=== PATIENT | male | born 1960 | race Caucasian/White ===

== ENCOUNTER 2019-03-21 11:20 | Inpatient (IN) | payer OTHER ==
[~2019-03-21] VITALS: Ht 172.7 cm; Wt 80.3 kg
--- NOTE | 2019-03-21 11:32 | NUR ---
AMBULATORY TO BED 12. C/O FEVER, COUGH X5 DAYS.
--- NOTE | 2019-03-21 14:26 | NUR ---
ORAL TEMP 100.9, TYLENOL 1 GM PO ADMIN PER PROTOCOL.
[2019-03-21 14:29] LABS: CALCIUM 7.3 mg/dL (8.5-10.1); CARBON DIOXIDE 25.6 mmol/L (21-32); CHLORIDE SERUM 98 mmol/L (98-107); CREATININE SERUM 1.1 mg/dL (0.7-1.3); GFR1 > 60 mL/min; GLUCOSE SERUM 109 mg/dL (74-106); POTASSIUM SERUM 3.6 mmol/L (3.5-5.1); SODIUM SERUM 132 mmol/L (136-145)
[2019-03-21 14:36] LABS: RED CELL DISTRIBUTION WIDTH 12.8 % (11.5-14.5)
[2019-03-21 14:47] LABS: BASOPHIL % 0 % (0-2); PLATELET COUNT 100 x10^3mcL (130-400)
[2019-03-21 15:28] LABS: UA SPECIFIC GRAVITY 1.015 (1.005-1.035); microscopic required? YES; urine erythrocyte 2+ (NEGATIVE)
--- NOTE | 2019-03-21 16:35 | NUR ---
SLEEPING, EASILY AROUSABLE, NO SIGNS OF DISTRESS, FAMILY AT BEDSIDE.
[2019-03-21 17:56] LABS: AMPHETAMINE QUAL UR NONE DETECTED (See below)
[2019-03-21 17:57] LABS: CHOLESTEROL/HDL RATIO 8.9; MAGNESIUM 1.7 mg/dL (1.8-2.4); PHOSPHOROUS 2.1 mg/dL (2.5-4.9)
[2019-03-21] MEDS ORDERED: MECLIZINE HYDRO25 M1 PO (18:00)
[2019-03-21] MEDS ORDERED: CEPHALEXIN500 MG PO (18:01)
--- NOTE | 2019-03-21 18:04 | NUR ---
AWAKE, ALERT, WATCHING TV, NO SIGNS OF DISTRESS, NO SOB, NO CP. FAMILY AT BEDSIDE,.
--- NOTE | 2019-03-21 18:08 | NUR ---
PT ADMITTED TO [facility], REPORT GIVEN TO JOSHUA STAUFFER.
[2019-03-21 18:39] VITALS: BP 98/52
--- NOTE | 2019-03-21 18:49 | NUR ---
RECEIVED PT FROM ER, PT ADMIT FOR UTI, PT IS A/O X4, VERBAL RESPONSIVE, ABLE TO TELL WHAT HE NEEDS. RIGHT EYE BLIND, MILD COLOR, NO REACT TO LIGHTS, LUNG SOUND CLEAR BILATERAL, NO COUGH, NO SOB, PT DENY ANY CHEST PAIN OR DISCOMFORT, BOWEL SOUND PRESENT ALL 4 QUADRANTS, NO DISTENTION, NO TENDER. PEDAL PULSE PRESENT BOTH FEET, NO EDEMA, IV AT RIGHT HAND, NO LEAKING, NO INFILTRATION. ALL ADLS ASSIST, ALL NEED MET, CALL LIGHT IN REACH, WILL CONTINUE TO MONITOR.
--- NOTE | 2019-03-21 20:40 | NUR ---
PT IN BED ALERT ORDERED VERBAL [place] SPEAKING DENIES HEADACHE OR DIZZINESS EQUAL HAND OUTSIDE SALESMAN, RT EYE BLINDNESS AMBULATORY, DENIES PAIN NO DISTRESS LUNGS CTA, VOIDING FREELY NO HEMATURIA ADMITTED FOR UTI ATB STARTED AT ER, AFEBRILE TEMP 98.2, ATTENDED NEEDS, UPDATED TX PLAN, SHIFT ASSESSMENT DONE, CONT TO MONITOR.
[2019-03-21 21:03] VITALS: BP 99/64
--- NOTE | 2019-03-22 00:10 | NUR ---
DR ENRIQUEZ MADE AWARE OF MG LEVEL 1.7 COVERED WITH MG RIDER 2GMS HANGED MEDS INDICATED.
[2019-03-22 05:25] VITALS: BP 102/69
--- NOTE | 2019-03-22 06:18 | NUR ---
SLEPT WELL DURING THE SHIFT, DENIES URINARY DISCOMFORTS, VOIDING FREELY DARK KRISTIE COLORED URINE OUTPUT, CONT ON ATB IV ORDERED, AFEBRILE V/S STABLE PT AMBULATING, DENIES PAIN, WILL ENDORSE TO INCOMING SHIFT FOR F/U CARE.
--- NOTE | 2019-03-22 07:30 | NUR ---
RECEIVED PT IN NO ACUTE DISTRESS. AAOX4. BLIND TO RIGHT EYE. RESP EVEN AND UNLABORED ON RA. IVF INFUSING, NO REDNESS OR SWELLING TO R HAND IV. HOB ELEVATED. NO C/O PAIN. BED IN LOW POSITION, CALL LIGHT WITHIN REACH. WILL CONTINUE TO MONITOR.
[2019-03-22 08:31] VITALS: BP 106/66
--- NOTE | 2019-03-22 12:28 | NUR ---
PT SITTING UP IN BED EATING LUNCH. NO ACUTE DISTRESS. RESP EVEN AND UNLABORED ON RA. IVF INFUSING, NO REDNESS OR SWELLING NOTED. VISITOR AT BEDSIDE. HOB ELEVATED. CALL LIGHT WITHIN REACH. WILL CONTINUE TO MONITOR.
[2019-03-22 16:31] VITALS: BP 103/64
--- NOTE | 2019-03-22 17:55 | NUR ---
PT IN NO ACUTE DISTRESS. SITTING UP IN BED EATING DINNER. AAOX4. BREATHING EVEN AND UNLABORED ON RA. IVF INFUSING, NO REDNESS OR SWELLING NOTED. HOB ELEVATED. VISITOR AT BEDSIDE. VOIDING FREELY, NO C/O BURNING OR PAIN ON URINATION AT THIS TIME. BED IN LOW POSITION, CALL LIGHT WITHIN REACH. WILL ENDORSE TO ONCOMING SHIFT.
[2019-03-22 19:22] VITALS: BP 104/56
--- NOTE | 2019-03-22 19:50 | NUR ---
RECEIVED PT IN BED, A/O X4. DENIES HEADACHE/DIZZINESS. RESP. EVEN AND UNLABORED.ON ROOM AIR, LUNG SOUNDS CLEAR BILAT. NO ACUTE DISTRESS NOTED. NO TELE, DENIES CP OR ANY DISCOMFORT AT THIS TIME.IVF, NS AT 100ML/HR, INTACT AND INFUSING VIA RT HAND, SITE CLEAR. AMBULATORY. VOIDING FREELY. CALL LIGHT WITHIN REACH. WILL CONTINUE TO MONITOR.
--- NOTE | 2019-03-23 00:49 | NUR ---
RESTING QUIETLY IN BED, WITH EYES CLOSED, APPEARS ASLEEP, EASILY AROUSABLE. RESP. EVEN AND UNLABORED. NO ACUTE DISTRESS NOTED. CALL LIGHT WITHIN REACH. WILL CONTINUE TO MONITOR.
[2019-03-23 04:34] VITALS: BP 109/68
--- NOTE | 2019-03-23 06:26 | NUR ---
SLEPT WELL DURING THE NIGHT. AFEBRILE AND VITAL SIGNS STABLE. RESP. EVEN AND UNLABORED. NO ACUTE DISTRESS NOTED. IVF INTACT AND INFUSING WELL, SITE CLEAR. DENIES PAIN OR ANY DISCOMFORT. CALL LIGHT WITHIN REACH. WILL CONTINUE TO MONITOR.
--- NOTE | 2019-03-23 07:20 | NUR ---
RECEIVED PT IN NO ACUTE DISTRESS. SLEEPING BUT EASILY AROUSABLE. BLIND TO R EYE. RESP EVEN AND UNLABORED ON RA. IVF INFUSING, NO REDNESS OR SWELLING NOTED. BED IN LOW POSITION, CALL LIGHT WITHIN REACH. WILL CONTINUE TO MONITOR.
[2019-03-23 07:59] VITALS: BP 130/81
[2019-03-23 09:51] LABS: BASOPHIL % 0.3 % (0-2); RED CELL DISTRIBUTION WIDTH 13.6 % (11.5-14.5)
[2019-03-23 10:39] LABS: PLATELET COUNT 126 x10^3mcL (130-400)
--- NOTE | 2019-03-23 12:25 | NUR ---
PT SITTING UP ON THE SIDE OF THE BED. NO ACUTE DISTRESS. AAOX4. RESP EVEN AND UNLABORED ON RA. IV TO R HAND, NO REDNESS OR SWELLING NOTED. CALL LIGHT WITHIN REACH. WILL CONTINUE TO MONITOR.
[2019-03-23 16:55] VITALS: BP 116/72
--- NOTE | 2019-03-23 18:37 | NUR ---
PT SITTING UP IN BED WATCHING TV. NO ACUTE DISTRESS. BREATHING EVEN AND UNLABORED ON RA. VOIDING FREELY. IV TO R HAND, NO REDNESS OR SWELLING NOTED. BED IN LOW POSITION, CALL LIGHT WITHIN REACH. WILL ENDORSE TO ONCOMING SHIFT.
[2019-03-23 19:20] VITALS: BP 129/75
--- NOTE | 2019-03-23 19:38 | NUR ---
AWAKE AND ALERT, ORIENTED TO NAME, PLACE, TIME AND SITUATION. SPEECH CLEAR AND APPROPRIATE. BREATHING EVEN AND UMLABORED ON ROOM AIR. HOB ELEVATED 30 DEG. CALL LIGHT WITHIN EASY REACH. STATED VOIDING WELL, DENIES HAVING PAIN WHEN VOIDING.
--- NOTE | 2019-03-23 22:46 | NUR ---
eyes closed, breathing even and unlabored on room air. call light within easy reach.
[2019-03-24 05:45] VITALS: BP 123/72
--- NOTE | 2019-03-24 06:12 | NUR ---
ambulated in room to restroom, steady gait. stated slept well. denies having pain.
[2019-03-24 06:30] LABS: BASOPHIL % 0.3 % (0-2); PLATELET COUNT 175 x10^3mcL (130-400); RED CELL DISTRIBUTION WIDTH 13.3 % (11.5-14.5)
[2019-03-24 07:00] LABS: CALCIUM 7.9 mg/dL (8.5-10.1); CARBON DIOXIDE 26.6 mmol/L (21-32); CHLORIDE SERUM 109 mmol/L (98-107); CREATININE SERUM 0.8 mg/dL (0.7-1.3); GFR1 > 60 mL/min; GLUCOSE SERUM 87 mg/dL (74-106); POTASSIUM SERUM 4.2 mmol/L (3.5-5.1); SODIUM SERUM 142 mmol/L (136-145)
--- NOTE | 2019-03-24 07:13 | NUR ---
AWAKE AND ALERT, BREATHING EVEN AND UNLABORED. DENIES HAVING PAIN. ENDORSED TO NURSE AUGUSTA
--- NOTE | 2019-03-24 07:26 | NUR ---
PT LYING IN BED A/A. RESPIRATIONS EQUAL/ UNLABORED ON RA. NO REDNESS/ SWELLING AT IV SITE. BED IN LOW POSITION, CALL LIGHT IN REACH, WILL CONTINUE TO MONITOR
[2019-03-24 08:06] VITALS: BP 109/59
[2019-03-24] MEDS ORDERED: BACTRIM DS1 TAB PO (10:33)
--- NOTE | 2019-03-24 11:49 | NUR ---
PT STANDING AT BED SIDE. BREATHING EQUAL/ UNLABORED ON RA. NO ACUTE DISTRES. NO REDNESS/ SWELLING AT IV SITE. BED IN LOW POSITION, CALL LIGHT IN REACH. WILL CONTINUE TO MONITOR
[2019-03-24 13:06] VITALS: BP 109/59
--- NOTE | 2019-03-24 16:45 | NUR ---
PT SITTING IN BED A/A. RESPIRATIONS EQUAL/ UNLABORED ON RA. NO C/O PAIN DISCOMFORT AT THIS TIME. NO REDNESS/SWELLING TO IV SITE. BED IN LOW POSITION, CALL LIGHT IN REACH, WILL CONTINUE TO MONITOR
--- NOTE | 2019-03-24 18:05 | NUR ---
PT DC'D AMBULATORY, A/A/ OX4, ACCOMPANIED BY PHARMACY CLINICAL SPECIALIST AND FAMILY. DC'D TO HOME. EDUCATION WAS PROVIDED BY RN SUZY , PT VERBALIZED UNDERSTANDING. PT INSTRUCTED TO F/U WITH PCP, PT VERBALIZED UNDERSTANDING. RX WAS GIVEN TO PT. IV REMOVED WITH CATHETER INTACT. ALL BELONGINGS WITH PT.
[2019-03-25 13:41] VITALS: Ht 172.7 cm; Wt 80.3 kg
== END 2019-03-24 18:01 | disposition home or self-care (01) | DRG 872 ==
LOC: ED 11:20 → MU 17:12
PROVIDERS: Emergency Medicine; ADMIT Internal Medicine
DX: A41.9 Sepsis, unspecified organism (principal); N39.0 Urinary tract infection, site not specified; E87.1 Hypo-osmolality and hyponatremia; E83.42 Hypomagnesemia; E83.39 Other disorders of phosphorus metabolism; B96.20 Unspecified Escherichia coli [E. coli] as the cause of diseases classified elsewhere
CPT/HCPCS: G0378; J0696; J0780; J1200; J1885; J3475; J7030; Q0092